=== PATIENT | female | born 1980 | race African-American/Black ===

== ENCOUNTER 2016-12-15 04:31 | Emergency (ER) | payer OTHER ==
[~2016-12-15] VITALS: Ht 152.4 cm; Wt 76.2 kg
--- NOTE | ~2016-12-15 | EKG ---
[address] [address] ELECTROCARDIOGRAM REPORT Name: JOBY MCGREGOR Room #: DEP [facility]#: [id number] Admission: 12/15/16 Attend Phys: Discharge: 12/15/16 Date of : 82 Report #: [id number] THIS REPORT FOR: //name// [facility] [place], [place] ED Test Date: 2016-12-15 Test Time: 05:19:28 Pat Name: JOBY MCGREGOR Department: Room: Gender: F Dance Artist: YUE : 1980 Requested By: Yoshi Jacinto Order Number: [id number] MD: Glen Escamilla Measurements Intervals [place] Rate: 77 P: 19 GA: 171 QRS: 2 QRSD: 86 T: 10 QT: 402 QTc: 455 Interpretive Statements Sinus rhythm No previous ECG available for comparison Electronically Signed On 12-15-2016 11:12:52 CDT by Glen Escamilla [email or web address] <ELECTRONICALLY SIGNED> By: Glen Escamilla MD 12/15/16 1112 0519 0519 MD FABIAN Jang
[~2016-12-15 04:31] MED LIST: COLACE100 MG PO; IMITREX PO; NORCO 5-325 TA1 EACH PO
[2016-12-15 04:57] LABS: URINE BILIRUBIN NEGATIVE (Negative); URINE BLOOD 1+ (Negative); URINE COLOR YELLOW; URINE GLUCOSE-RANDOM* NEGATIVE (Negative); URINE KETONES NEGATIVE (Negative); URINE LEUKOCYTES-REFLEX NEGATIVE (Negative); URINE PROTEIN (DIPSTICK) NEGATIVE (Negative); URINE SPECIFIC GRAVITY 1.015 (1.003-1.035)
[2016-12-15 05:10] LABS: ABSOLUTE NEUTROPHILS 8.5 thou/uL (1.4-8.2); BASOPHILS 1.1 % (0.0-2.0); EOSINOPHILS 2.6 % (0.0-3.0); HEMATOCRIT 39.2 % (37.0-47.0); HEMOGLOBIN 13.2 gm/dL (12.0-15.0); LYMPHOCYTES 25.3 % (24.0-44.0); MCHC 33.7 g/dL (28.0-37.0); MONOCYTES 6.3 % (1.0-8.0); PLATELET COUNT 356 thou/uL (150-400); POLYS 64.7 % (36.0-66.0); RBC 4.41 mil/uL (4.20-5.00); RDW 14.1 % (10.5-14.5); WBC 13.1 thou/uL (4.0-11.0)
[2016-12-15 05:15] LABS: MANUAL DIFF NO
[2016-12-15 05:18] LABS: SQUAMOUS >10 Many /LPF (0-3)
[2016-12-15 05:19] LABS: AMORPHOUS PHOSPHATES Moderate /LPF (None Seen); CASTS None Seen /LPF (None Seen); URINE RBC 3-10 Few /HPF (0-2); URINE WBC-REFLEX None Seen /HPF (0-5)
[2016-12-15 05:21] LABS: ANION GAP 8 mmol/L (7-16); BUN 10 mg/dL (7-18); CALCIUM 8.8 mg/dL (8.5-10.1); CHLORIDE 103 mmol/L (98-107); CO2 26 mmol/L (21-32); CREATININE 0.8 mg/dL (0.6-1.0); GLUCOSE 91 mg/dL (74-106); POTASSIUM 4.1 mmol/L (3.5-5.1); SODIUM 137 mmol/L (136-145)
[2016-12-15 05:29] LABS: ALBUMIN 3.8 g/dL (3.4-5.0); ALKALINE PHOSPHATASE 81 U/L (46-116); SGOT 27 U/L (15-37); SGPT 24 U/L (30-65); TOTAL BILIRUBIN 0.4 mg/dL (<0.1-1.0); TOTAL PROTEIN 7.6 g/dL (6.4-8.2); TROPONIN-I < 0.04 ng/mL (<0.04-0.07)
[2016-12-15] MEDS ORDERED: NORCO 5-325 TA1 EACH PO (05:39)
[2016-12-15] MEDS ORDERED: PRILOSEC 20 MG20 MG PO (05:39)
[2016-12-15 06:04] VITALS: BP 133/69
== END 2016-12-15 06:09 | disposition home or self-care (01) ==
LOC: ER 04:31
PROVIDERS: Emergency Medicine
DX: K59.00 Constipation, unspecified (principal); F10.10 Alcohol abuse, uncomplicated

== ENCOUNTER 2017-09-26 14:57 | Emergency (ER) | payer OTHER ==
[~2017-09-26] VITALS: Ht 152.4 cm; Wt 72.6 kg
[~2017-09-26 14:57] MED LIST changes: +PRILOSEC 20 MG20 MG PO
[2017-09-26 15:52] LABS: BASOPHILS 0.8 % (0.0-2.0); HEMATOCRIT 37.7 % (37.0-47.0); HEMOGLOBIN 12.8 gm/dL (12.0-15.0); LYMPHOCYTES 26.3 % (24.0-44.0); MCH 30.6 pg (26.0-34.0); MCHC 34.1 g/dL (28.0-37.0); MCV 89.7 fL (80.0-100.0); MONOCYTES 5.1 % (1.0-8.0); PLATELET COUNT 366 thou/uL (150-400); POLYS 66.8 % (36.0-66.0); RDW 13.7 % (10.5-14.5); WBC 10.4 thou/uL (4.0-11.0)
[2017-09-26 16:01] LABS: CALCIUM 8.7 mg/dL (8.5-10.1); CREATININE 0.9 mg/dL (0.6-1.0); POTASSIUM 3.4 mmol/L (3.5-5.1)
[2017-09-26 16:11] LABS: ALBUMIN 3.7 g/dL (3.4-5.0); TOTAL BILIRUBIN 0.4 mg/dL (<0.1-1.0); TOTAL PROTEIN 7.7 g/dL (6.4-8.2)
[2017-09-26 17:11] VITALS: BP 130/72
== END 2017-09-26 17:12 | disposition home or self-care (01) ==
LOC: ER 14:57
PROVIDERS: Emergency Medicine
DX: R51 Headache (principal); R20.2 Paresthesia of skin

== ENCOUNTER 2017-10-20 11:23 | Emergency (ER) | payer OTHER ==
[~2017-10-20] VITALS: Ht 152.4 cm; Wt 72.6 kg
[2017-10-20] MEDS ORDERED: NORCO 5-325 TA1 EACH PO (12:50)
[2017-10-20 13:47] VITALS: BP 138/78
== END 2017-10-20 13:49 | disposition home or self-care (01) ==
LOC: ER 11:23
DX: S82.892A Other fracture of left lower leg, initial encounter for closed fracture (principal); S93.491A Sprain of other ligament of right ankle, initial encounter; W01.0XXA Fall on same level from slipping, tripping and stumbling without subsequent striking against object, initial encounter; Y93.01 Activity, walking, marching and hiking; Y92.007 Garden or yard of unspecified non-institutional (private) residence as the place of occurrence of the external cause; Y99.8 Other external cause status

== ENCOUNTER 2018-01-21 19:26 | Emergency (ER) | payer OTHER ==
[~2018-01-21] VITALS: Ht 152.4 cm; Wt 72.6 kg
[2018-01-21 20:08] LABS: URINE BILIRUBIN NEGATIVE (Negative); URINE BLOOD 3+ (Negative); URINE CLARITY CLEAR; URINE COLOR YELLOW; URINE GLUCOSE-RANDOM* NEGATIVE (Negative); URINE KETONES NEGATIVE (Negative); URINE NITRITE-REFLEX NEGATIVE (Negative); URINE PROTEIN (DIPSTICK) NEGATIVE (Negative)
[2018-01-21 20:10] LABS: URINE LEUKOCYTES-REFLEX TRACE (Negative)
[2018-01-21 20:19] LABS: BACTERIA-REFLEX None Seen /HPF (None Seen); CASTS None Seen /LPF (None Seen); CRYSTALS None Seen /LPF (None Seen); MUCUS 0-3 Light strn/LPF (None Seen); SQUAMOUS 4-10 Moderate /LPF (0-3); URINE RBC 3-10 Few /HPF (0-2); URINE WBC-REFLEX 0-5 Rare /HPF (0-5)
[2018-01-21] MEDS ORDERED: TESSALON PERLE100 MG PO (20:57)
[2018-01-21] MEDS ORDERED: VENTOLIN HFA 1818 GM INH (20:57)
[2018-01-21] MEDS ORDERED: AUGMENTIN 875-1 EACH PO (20:57)
[2018-01-21 21:52] VITALS: BP 126/72
== END 2018-01-21 21:52 | disposition home or self-care (01) ==
LOC: ER 19:26
PROVIDERS: Physician Assistant
DX: J18.9 Pneumonia, unspecified organism (principal); R19.7 Diarrhea, unspecified

== ENCOUNTER 2018-12-14 19:55 | Emergency (ER) | payer OTHER ==
[~2018-12-14] VITALS: Ht 152.4 cm; Wt 65.8 kg
[~2018-12-14 19:55] MED LIST changes: +AUGMENTIN 875-1 EACH PO; +TESSALON PERLE100 MG PO; +VENTOLIN HFA 1818 GM INH
[2018-12-14] MEDS ORDERED: NAPROSYN500 MG PO (22:31)
[2018-12-14 23:00] VITALS: BP 136/77
--- NOTE | 2018-12-15 08:03 | EKG ---
[address] [address] ELECTROCARDIOGRAM REPORT Name: JOBY MCGREGOR Room #: [facility]#: [id number] Admission: 12/14/18 Attend Phys: Discharge: 12/14/18 Date of : 82 Report #: [id number] THIS REPORT FOR: //name// [facility] ED Test Date: 2018-12-14 Test Time: 21:42:12 Pat Name: JOBY MCGREGOR Department: Room: Gender: F [employer] Operator: : 1980 Requested By: Albino Ward Order Number: [id number] MD: Felix Gabriel Measurements Intervals [place] Rate: 58 P: 24 RI: 169 QRS: 1 QRSD: 100 T: 11 QT: 432 QTc: 425 Interpretive Statements Sinus rhythm Normal tracing Compared to ECG 12/15/2016 05:19:28 No significant changes Electronically Signed On 12-15-2018 8:03:45 CDT by Felix Gabriel [email or web address] <ELECTRONICALLY SIGNED> By: Felix Gabriel MD, [facility] 12/15/18 [id number] Felix Gabriel MD, FACC /EPI
== END 2018-12-14 23:05 | disposition home or self-care (01) ==
LOC: ER 19:55
DX: M79.652 Pain in left thigh (principal); Z98.51 Tubal ligation status

== ENCOUNTER 2020-01-27 18:40 | Emergency (ER) | payer OTHER ==
[~2020-01-27] VITALS: Ht 152.4 cm; Wt 70.3 kg
[~2020-01-27 18:40] MED LIST changes: +NAPROSYN500 MG PO
[2020-01-27 19:02] VITALS: BP 157/92
== END 2020-01-27 21:04 | disposition left against medical advice (07) ==
LOC: ER 18:40
DX: R51.9 Headache, unspecified (principal); Z53.21 Procedure and treatment not carried out due to patient leaving prior to being seen by health care provider